=== PATIENT | female | born 1965 | race Caucasian/White ===

== ENCOUNTER 2017-11-08 02:10 | Inpatient (IN) | payer OTHER ==
[~2017-11-08] VITALS: Ht 167.6 cm; Wt 69.4 kg
[~2017-11-08 02:10] MED LIST: LISINOPRIL2.5 M1 PO; SYNTHROID175 MCG PO
[2017-11-08] MEDS ORDERED: MIRALAX17 G1 PO (09:11)
[2017-11-08] MEDS ORDERED: MS CONTIN15 M3 PO (09:11)
[2017-11-08] MEDS ORDERED: COLACE100 M1 PO (09:11)
[2017-11-08] MEDS ORDERED: ASPIRIN EC325 M2 PO (09:11)
[2017-11-08] MEDS ORDERED: DILAUDID2 M1 PO (09:11)
[2017-11-08] MEDS ORDERED: PRILOSEC OTC20 M1 PO (09:11)
--- NOTE | 2017-11-08 09:17 | Patient Discharge Instructions ---
Discharge Instructions General Discharge Information You were seen/treated for: left hip pain You had these procedures: left total hip replacement Watch for these problems: fever over 100.5 drainage from wound unable to bear weight on left leg Call Surgeon to remove: 6wk post-op wound check No bath, but you may shower: Yes Other wound care: daily dry dressing change Diet Continue normal diet: Yes Activity Activity Self Limited: Yes Pounds, do NOT lift more than: 10 Activity Limited to: Weight bear as tolerated Acute Coronary Syndrome Inclusion Criteria At DC or during hospital stay patient has or had the following: ACS DIAGNOSIS No Discharge Core Measures Meds if any: Prescribed or Continued at Discharge Meds if any: NOT Prescribed or Continued at Discharge Congestive Heart Failure Inclusion Criteria At DC or during hospital stay patient has or had the following: CHF DIAGNOSIS No Discharge Core Measures Meds if any: Prescribed or Continued at Discharge Meds if any: NOT Prescribed or Continued at Discharge Cerebrovascular accident Inclusion Criteria At DC or during hospital stay patient has or had the following: CVA/TIA Diagnosis No Discharge Core Measures Meds if any: Prescribed or Continued at Discharge Meds if any: NOT Prescribed or Continued at Discharge Venous thromboembolism Inclusion Criteria VTE Diagnosis No VTE Type NONE VTE Confirmed by (Test) NONE Discharge Core Measures - Per Current guidelines, there needs to be overlap - treatment for the first 5 days of Warfarin therapy. - If discharged on Warfarin prior to 5 days of - overlap therapy, the patient will need to be - assessed for post discharge needs including - *Post discharge parental anticoagulation - *Warfarin and/or parental anticoagulation education - *Follow up date to check INR post discharge At least 5 days overlap therapy as Inpatient No Meds if any: Prescribed or Continued at Discharge Note: Overlap Therapy is Warfarin and Anticoagulant Meds if any: NOT Prescribed or Continued at Discharge
--- NOTE | 2017-11-08 09:18 | Admission Core Measures ---
Acute Coronary Syndrome (CM) ACS Core Measures Acute Coronary Syndrome Diagnosis No Congestive Heart Failure (NEW) CHF Core Measures Congestive Heart Failure Diagnosis No Cerebrovascular Accident (NEW) CVA Core Measures CVA/TIA Diagnosis No Venous Thromboembolism VTE Core Billy (View Protocol) VTE Risk Factors Surgery No Mechanical VTE Prophylaxis d/t N/A MechProphylax Ordered No VTE Pharm Prophylaxis d/t NA PharmProphylax ordered Problem List As ranked by this Provider includes Assessment & Plan 1. Unilateral primary osteoarthritis, left hip HOME MEDS Home Med List Aspirin (Ecotrin*) 325 MG TABLET.DR 1 TAB PO BID ANTICOAGULATION Docusate Sodium (Colace) 100 MG CAPSULE 1 CAP PO BID STOOL SOFTENER Hydromorphone HCl (Dilaudid) 2 MG TABLET 1-2 TAB PO Q4-6 PRN PRN PAIN Levothyroxine Sodium (Synthroid) 175 MCG TABLET 1 TAB PO DAILY HORMONE ( Reported) Lisinopril 2.5 MG TABLET 2 TAB PO DAILY HTN (Reported) Morphine Sulfate (Ms Contin) 15 MG TABLET.ER 1 TAB PO BID PAIN Omeprazole Magnesium (Prilosec Otc) 20 MG TABLET.DR 1 TAB PO DAILY GI PROTECTION Polyethylene Glycol 3350 (Miralax) 17 GRAM POWD.PACK 1 PAC PO DAILY CONSTIPATION
--- NOTE | 2017-11-08 09:23 | Surgical Discharge Summary ---
Visit Information Visit Dates Admission Date: 11/08/17 Discharge Date: 11/08/17 History of Present Illness Chief Complaint: left hip pain Medical History Isolation History: Standard Influenza Vaccine: 06/16/13 Surgical History Pertinent Surgical History: non-contributory Review of Systems: NO CP/SOB NO FEVERS NO DYSURIA NO N/V Hospital Course Course Attending Physician: Monico Gomez MD Primary Care Physician: Jann MARAVILLA,[facility] Hospital Course: pt presented to [facility] on 11/08/17 for elective left total hip arthroplasty with Dr Gomez. Pt tollerated the procedure well. POst-operatively she was tolerating PO, voiding spontaneously, pain was controlled with oral medications, and she was cleared for discharge by physical therapy. She was giving discharge instructions and was told to follow-up with dr Gomez in 6 weeks Allergies: Coded Allergies: No Known Allergies (11/05/17) Disposition Summary Disposition Principal Diagnosis: primary unilateral OA, left hip Additional Diagnosis: SP left PÉREZ Discharge Disposition: home health services Discharge Instructions General Discharge Information Code Status: Full Code Patient's Diet: regular Patient's Activity: wbat Follow-Up Instructions/Appts: fu with dr gomez in 6 weeks Medications at Discharge Discharge Medications: Continue taking these medications: Lisinopril (Lisinopril) 2.5 MG TABLET 2 Tablet ORAL DAILY Levothyroxine Sodium (Synthroid) 175 MCG TABLET 1 Tablet ORAL DAILY Start taking the following new medications: Aspirin (Ecotrin*) 325 MG TABLET. 1 Tablet ORAL TWICE DAILY Qty = 60 No Refills Docusate Sodium (Colace) 100 MG CAPSULE 1 Capsule ORAL TWICE DAILY Days = 7 No Refills Instructions: STOP TAKING IF YOU DEVELOP LOOSE STOOL/DIARRHEA Hydromorphone HCl (Dilaudid) 2 MG TABLET 1-2 Tablet ORAL EVERY 4-6 HOURS NEEDED as needed for PAIN Qty = 36 No Refills Morphine Sulfate (Ms Contin) 15 MG TABLET.ER 1 Tablet ORAL TWICE DAILY Qty = 4 No Refills Polyethylene Glycol 3350 (Miralax) 17 GRAM POWD.PACK 1 Packet ORAL DAILY Qty = 7 No Refills Instructions: dissolve in water. STOP TAKING IF YOU DEVELOP LOOSE STOOL/DIARRHEA Omeprazole Magnesium (Prilosec Otc) 20 MG TABLET. 1 Tablet ORAL DAILY Qty = 30 No Refills Copies To: Monico Gomez MD; Jann MARAVILLA,Bert Membreno
--- NOTE | 2017-11-08 11:10 | RADIOLOGY REPORT ---
EXAMINATION: XR HIP, LEFT CLINICAL INFORMATION: Status post left total hip replacement. COMPARISON: None TECHNIQUE: Two views of the left hip. FINDINGS: There are surgical changes status post left hip arthroplasty. The acetabular and femoral components appear well seated. No evidence of hardware failure or fracture. Expected postsurgical changes including subcutaneous air and subcutaneous swelling are noted. IMPRESSION: Status post left hip arthroplasty. The hardware is in normal anatomic position. Expected postoperative soft tissue findings.
[2017-11-08 12:47] VITALS: BP 132/68
--- NOTE | 2017-11-08 13:30 | Operative Report ---
Operative/Inv Procedure Report Surgery Date: 11/08/17 Name of Procedure: Left total hip replacement Pre-Operative Diagnosis: Primary left hip DJD Post-Operative Diagnosis: Same Estimated Blood Loss: 350 Surgeon/Call Center Rn: Rios MARAVILLA,Monico Hi Anesthesia: block Operative/Procedure Note Note: Description of Procedure: The patient was taken to the operating room and positively identified. After induction of spinal anesthesia and administration of appropriate pre-operative antibiotics, the patient was positioned supine on the operating room table and all bony prominences were well padded. After performing a surgical timeout, the left lower extremity was prepped and draped in the usual sterile fashion. A direct anterior approach was made to the left hip. The incision was carried sharply through superficial soft tissues to the level of the fascia. Meticulous hemostasis was maintained with Bovie electocautery. The fascia over the tensor fascia shanice muscle was opened sharply and the interval between the TFL and the sartorius was entered bluntly taking care to stay lateral to the lateral femoral cutaneous nerve. Retractors were placed around the femoral neck and the pericapsular fat was identified. The ascending branches of the lateral femoral circumflex vessels were identified and carefully coagulated. The pericapsular fat and anterior capsule were then resected. A napkin ring osteotomy was performed and the femoral head was removed without difficulty. Attention was then turned to the acetabulum. After appropriate placement of retractors, the acetabulum was exposed. Soft tissue was cleaned from the acetabular margin and notch. Overhanging osteophytes were removed and the teardrop was exposed. The acetabulum was then sequentially reamed to accept a 52 mm [place] Tritanium hemispherical solid shell. This was impacted into place in the appropriate position and fitted with a 32 mm Trident X3 zero degree polyethylene insert. Attention was then turned to the femur. After performing the appropriate ligament releases, the proximal femur was exposed. It was then sequentially broached to accept a size #4 [place] Anato stem. This was trialed for leg length and stability. The trial component was removed and the final component was impacted into place. The trunnion was carefully cleaned and fit with a 32 mm, +0 Biolox delta ceramic femoral head. The hip was reduced and put through a full range of motion and found to be stable. The articular space was then irrigated with sterile saline. The periarticular soft tissues were infilitrated with Marcaine. The fascial layer was closed with interrupted #1 vicryl suture and the skin was re-approximated with interrupted 2 -0 vicryl. The skin was closed with a running 3-0 V-Lock suture. Steri-strips and a sterile dressing were applied. The patient was awakened and taken to the recovery room in satisfactory condition.
--- NOTE | 2017-11-08 14:30 | PN- Orthopedic ---
Subjective Subjective: POST-OP CHECK pt in chair, tolerating diet. voided. pain well-controlled. worked with PT and was able to do stairs, cleared for discharge to home. denies cp/sob/fevers/lucia Objective Vital Signs and I&Os Vital Signs Date Time Temp Pulse Resp B/P B/P Pulse O2 O2 Flow FiO2 Mean Ox Delivery Rate 11/08 1247 97.4 81 20 132/68 99 Room Air Intake & Output 11/08 1600 11/08 0800 11/08 0000 11/07 1600 11/07 0800 11/07 0000 Intake Total 1400 Output Total 300 Balance 1100 Intake, IV 600 Intake, Oral 800 Output, Urine 300 Patient 153 lb Weight Weight Reported by Patient Measurement Method Physical Exam: gen-NAD resp-clear cardiac-RRR abd-ND, soft, nt ext- left hip soft with clean dry dressing. distal sensory and motor function intact Current Medications: Current Medications Sig/Kayode Start time Last Medication Dose Route Stop Time Status Admin Acetaminophen 1,000 MG Q6 11/08 1200 AC 11/08 IV 11/09 0601 1355 Acetaminophen 0 .STK-MED ONE 11/08 0728 DC PO Aspirin 325 MG BID 11/08 1000 AC 11/08 PO 1354 Cefazolin Sodium 2 GM IQ8 11/08 1600 AC N/A 1 UNIT IV 11/09 0029 Cefazolin Sodium 2,000 MG ONCE 11/08 0000 DC IV 11/08 2359 Dextrose/Sodium 1,000 ML .[id number] 11/08 1245 AC 11/08 Chloride IV 1356 Docusate Sodium 100 MG BID 11/08 1000 AC 11/08 PO 1354 Hydromorphone HCl 2 MG Q4P PRN 11/08 1245 AC PO Hydromorphone HCl 4 MG Q4P PRN 11/08 1245 AC PO Ketorolac 15 MG Q8 11/08 1400 AC 11/08 Tromethamine IM 11/11 0601 1355 Levothyroxine Sodium 0.175 MG DAILY AC 11/09 0700 AC PO Levothyroxine Sodium 0.175 MG DAILY 11/08 1000 DC PO Lisinopril 5 MG DAILY 11/09 1000 AC PO Lisinopril 5 MG DAILY 11/08 1000 DC PO Omeprazole 20 MG DAILY AC 11/09 0700 AC PO Ondansetron HCl 4 MG Q6P PRN 11/08 1245 AC IV Oxycodone HCl 0 .STK-MED ONE 11/08 0727 DC PO Polyethylene Glycol 17 GM DAILY 11/08 1000 AC 11/08 PO 1355 Promethazine HCl 12.5 MG Q6P PRN 11/08 1245 AC IV 11/15 0859 Results Last 48 Hours of Labs: Laboratory Tests 11/08 0629 Urines Urine Test NEGATIVE Assessment/Plan Assessment/Plan 51yo F SP Left PÉREZ POD0. stable Pt cleared by PT for DC to home with health services. WBTA. Rolling walker DVT ppx- ASA 325bid pain management FU with Dr Nation in 6 weeks. instructions given to call sooner if any questions or concerns Cont regular home medications Gi protection- Prilosec daily DC to home today with home health services Core Measures Venous Thromboembolism VTE Risk Factors Surgery No Mechanical VTE Prophylaxis d/t N/A MechProphylax Ordered No VTE Pharm Prophylaxis d/t NA PharmProphylax ordered
[2017-11-08 15:34] VITALS: BP 100/68
== END 2017-11-08 18:11 | disposition home health service (06) | DRG 470 ==
LOC: SDA 02:10 → ENRESERV 11:18 → ENTRNSPT 11:47 → EDTRNSPT 12:18 → EDTRNSPTSTS 12:18 → 2NA 12:25 → CMPTRNSPT 12:33 → ENPENDDIS 14:26 → ENTRNSPT 17:41 → CMPTRNSPT 18:05 → 2NA 18:11
PROC: 0SRB04A Replacement of Left Hip Joint with Ceramic on Polyethylene Synthetic Substitute, Uncemented, Open Approach (ICD-10-PCS; principal; 2017-11-08)
DX: M16.12 Unilateral primary osteoarthritis, left hip (principal); E03.9 Hypothyroidism, unspecified; I10 Essential (primary) hypertension; Z87.891 Personal history of nicotine dependence
CPT/HCPCS: 2NASP; 73502-LT; 81025; 97116-GO; 97161-GP; J0131; J0690; J0735; J2405; J2550; J3490; J7042